=== PATIENT | male | born 1950 | race Caucasian/White ===

== ENCOUNTER 2021-05-03 14:45 | Emergency (ER) | payer OTHER, SELFPAY ==
[2021-05-03] VITALS (13 sets, daily range): BP systolic 92–137; BP diastolic 51–91; PULSE 64–87; RESP 16–20; TEMP 36.2; O2SAT 97–99
--- NOTE | ~2021-05-03 | XR_ITS ---
EXAMINATION: XR chest 2V DATE: 05/03/2021 15:20 INDICATION: Dizziness and weakness TECHNIQUE: AP and lateral views of the chest are obtained. COMPARISON: None available FINDINGS: The lungs are free of acute opacities. There is no pleural effusion or pneumothorax. The ca rdiomediastinal silhouette is normal. There are bridging osteophytes at multiple levels in the spine, consistent with diffuse idiopathic skeletal hyperostosis (DISH). IMPRESSION: 1. No acute cardiopulmonary abnormality. Reviewed, dictated and finalized at location B.
--- NOTE | ~2021-05-03 | CT_ITS ---
EXAMINATION: CT brain wo con DATE: 05/03/2021 18:23 INDICATION: Dizziness and falls TECHNIQUE: Computed tomography (CT) of the head was performed without intravenous contrast. Sagittal and coronal reconstructions were performed. The mA was adjusted according to patient size. Iterative reconstruction technique was employed. The dose-length product was 605.33 mGy-cm. COMPARISON: None FINDINGS: No fracture. No acute intracranial hemorrhage, acute infarction or abnormal extra axial fluid collect ion. There is mild scattered white matter hypoattenuation consistent with chronic small vessel ischem ic disease. Symmetric prominence of the sulci and ventricles consistent with mild age-appropriate dif fuse cerebral volume loss. There is a 1.4 x 1.2 x 1.0 cm extra-axial mass in the left posterior fossa which appears flattened along the side abutting the left petrous bone and with greater density than the brain parenchyma suggesting a dural based meningioma. The underlying petrous bone appears normal with no cortical erosion. No other masses identified. The orbits and right mastoid air cells are norm al. Small left mastoid effusion. Minimal scattered mucoperiosteal thickening in the paranasal sinuses . IMPRESSION: 1. No fracture or acute intracranial process. 2. 1.4 cm extra-axial mass in the left posterior fossa with appearance suggesting a meningioma. Less likely etiologies would include dural metastatic disease, lymphoma, neurosarcoidosis or other less li yury primary malignancies. Recommend correlation with any prior outside imaging to document chronicit y. Otherwise would consider further evaluation with pre and postcontrast MRI to confirm a dural based etiology and for more sensitive assessment for any additional lesions. 3. Age-related changes including mild diffuse volume loss and mild scattered white matter hypoattenua tion consistent with chronic small vessel ischemic disease. Reviewed, dictated and finalized at location A. IMPRESSION: 1. No fracture or acute intracranial process. 2. 1.4 cm extra-axial mass in the left posterior fossa with appearance suggesti ng a meningioma. Less likely etiologies would include dural metastatic disease, lymphoma, neurosarcoidosis or other less likely primary malignancies. Recommen d correlation with any prior outside imaging to document chronicity. Otherwise would consider further evaluation with pre and postcontrast MRI to confirm a du ral based etiology and for more sensitive assessment for any additional lesions . 3. Age-related changes including mild diffuse volume loss and mild scattered wh ite matter hypoattenuation consistent with chronic small vessel ischemic diseas e.
--- NOTE | 2021-05-03 14:51 | ECG_ITS ---
Measurements Intervals [place] Rate: 73 P: 46 VT: 179 QRS: -84 QRSD: 110 T: 79 QT: 377 QTc: 418 Interpretive Statements SINUS RHYTHM LEFT AXIS DEVIATION INTRAVENTRICULAR CONDUCTION DELAY POOR R WAVE PROGRESSION, ANTERIOR LEADS INFERIOR INFARCT, AGE INDETERMINATE BORDERLINE ST-T WAVE ABNORMALITY- HIGH LATERAL LEADS BASELINE WANDER- V1-V3 ABNORMAL ECG Electronically Signed On 05-03-2021 15:24:18 CDT by Nikko Serra D.O.
[2021-05-03 15:20] LABS: Basophils Absolute Auto 0.1 K/mm3 (0.0-0.1); Basophils Percent Auto 0.6 % (0.2-1.2); Eosinophils Absolute Auto 0.3 K/mm3 (0-0.3); Hematocrit 47.8 % (42.0-52.0); Hemoglobin 16.6 g/dL (14.0-18.0); Immature Granulocyte Absolute 0.12 K/mm3 (0.00-0.031); Immature Granulocyte Percent A 0.8 % (0-0.5); Lymphocytes Absolute Auto 3.45 K/mm3 (0.9-3.2); Lymphocytes Percent Auto 22.1 % (18.3-44.2); Mean Corpuscular HGB Conc 34.7 g/dl (32-36); Mean Corpuscular Volume 83.4 fl (80-100); Mean Platelet Volume 11.6 fl (7.4-10.4); Monocytes Absolute Auto 1.1 K/mm3 (0.1-0.6); Monocytes Percent Auto 6.8 % (2.6-8.5); Neutrophils Absolute Auto 10.6 K/mm3 (1.3-6.7); Neutrophils Percent Auto 67.7 % (45.5-73.1); Platelet Count Result 317 k/mm3 (150-375); Red Blood Count 5.73 M/mm3 (4.6-6.20); Red Cell Distribution Width 12.9 % (11.5-14.5); White Blood Count 15.6 K/mm3 (4.5-10.0)
[2021-05-03 15:32] LABS: Alanine Aminotransferase 22 U/L (4-50); Albumin Level 4.5 g/dL (3.5-5.1); Alkaline Phosphatase 117 U/L (38-126); Anion Gap 13 mmol/L (8-16); Aspartate Amino Transferase 29 U/L (17-59); Bilirubin,Total 0.7 mg/dL (0.2-1.3); Blood Urea Nitrogen 42 mg/dL (9-20); Calcium 10.7 mg/dL (8.4-10.2); Carbon Dioxide 23 mmol/L (22-30); Chloride 93 mmol/L (98-107); Estimated CRCL calculation 18 ml/min; Estimated Glomerular Filt Rate 16; Glucose 133 mg/dL (65-110); Potassium 3.5 mmol/L (3.4-5.0); Sodium 129 mmol/L (137-145)
[2021-05-03 17:26] LABS: Magnesium 2.2 mg/dL (1.6-2.3)
[2021-05-03 17:39] LABS: NT Pro B Type Natriuretic Pept 191 pg/mL (5-100); Troponin I < 0.012 ng/mL (0.000-0.034)
[2021-05-03 19:12] LABS: Glucose Point of Care 124 mg/dl (65-105)
--- NOTE | 2021-05-03 19:40 | ED.DIZZY ---
HPI - Dizziness General Chief Complaint: Dizziness Stated Complaint: dizzy spells, falls Time Seen by Provider: 05/03/21 16:50 Source: patient and family Mode of arrival: ambulatory Limitations: no limitations History of Present Illness HPI Narrative: 71-year-old male Patient lives over in [place] and his doctors are all there but is visiting family here They are worried because he has had several falls over the last couple of weeks Patient states that he has intermittent dizziness primarily when he is upright but very occasionally something similar but milder when he rolls over in bed This causes him to veer around and have what he describes as not hard falls or anything He has not injured himself He does not have headaches he does not have any visual symptoms he denies hearing loss or tinnitus and he does not have any focal weakness Nor does he have any other symptoms of acute illness, denying shortness of breath chest pain vomiting or diarrhea dysuria or difficulty urinating, etc. He does not have an accurate list of his medications, says he takes about 13 mostly for diabetes and hypertension He knows he has some kidney problems but does not know how bad they are He does not have access to any of his records via a [facility] or [facility] portal Related Data Allergies Allergy/AdvReac Type Severity Reaction Status Date / Time codeine AdvReac Nausea and Verified 05/03/21 17:09 Vomiting Review of Systems Review of Systems: All systems reviewed & are unremarkable except as noted in HPI and below Constitutional: Constitutional: Reports no additional constitutional complaints, Denies chills, Denies fever(s), Denies headache(s) and Reports weakness Eyes: Eyes: Reports no additional eye complaints and Denies change in vision ENT: Denies headache(s) and Denies sore throat Cardiovascular: Cardiovascular: Denies chest pain and Denies dyspnea Respiratory: Respiratory: Denies cough and Denies dyspnea Gastrointestinal: Gastrointestinal: Denies abdominal pain, Denies diarrhea and Denies vomiting Genitourinary: Genitourinary: Denies oliguria, Denies dysuria and Denies urinary frequency Musculoskeletal: Musculoskeletal: Denies deformity, Denies arthralgias, Denies joint swelling and Denies numbness Integumentary/Breasts: Skin/Breast: Denies rash and Denies wounds Neurologic: Reports dizziness, Denies headache(s), Denies focal weakness, Denies numbness and Reports weakness Psychiatric: Psychiatric: Reports no additional psychiatric complaints Endocrine: Endocrine: Reports no additional endocrine complaints Hematologic/Lymphatic: Hematologic/Lymphatic: Reports no additional hematologic/lymphatic complaints Allergic/Immunologic: Allergic/Immunologic: Reports no additional allergic/immunologic complaints [facility] Social History Social History Gender identity (if verbalized by the patient): Male Exam Const: General: cooperative, healthy appearing, no acute distress and alert Orientation/consciousness: patient oriented x3 (alert) HENMT: Head: normal to inspection, normocephalic, atraumatic, no contusions and no hematomas Ears: external ears normal General nose exam: no epistaxis Other: Hearing okay Eyes: Conjunctivae: conjunctivae normal Pupils: Equal, round and reactive pupils present EOM: EOMs intact bilaterally Other: No nystagmus, no skew Neck: Neck: normal visual inspection, supple and no JVD Other: Supple Resp: Effort & Inspection: normal respiratory effort and not labored Auscultation: clear to auscultation bilaterally, no rales, no rhonchi, no wheezes and other (BS =) Cardio: Rate: regular rate Rhythm: regular rhythm Heart sounds: no murmurs GI: GI Palp: Yes Soft to palpation and No Tenderness to palpation present (GI) Skin: General skin exam: normal color and no rashes or lesions noted Neuro: General: patient oriented x3 (alert), moves all extremities, no meningeal signs, n
[2021-05-03] MEDS: LACTATED RINGERS 1,000 ML 999 ML IV CONT (20:49)
[2021-05-03 21:22] LABS: Add Urine Microscopic? YES; Appearance Urine Clear (Clear); Bacteria Urine Trace /hpf; Bilirubin Urine Negative (Negative); Blood Urine Negative (Negative); Color Urine Yellow (Yellow); Glucose Urine UA 3+ mg/dL (Negative); Ketones Urine Negative (Negative); Leukocyte Esterase Ur Negative LEU/UL (Negative); Mucus Urine Rare /lpf; Nitrate Urine Negative (Negative); Protein Urine 3+ mg/dL (Negative); RBC Urine 0-2 /hpf (0-2); Specific Grav Ur 1.022 (1.001-1.035); Squamous Epithelial Cell Urine Rare /hpf (Few); Urobilinogen Urine Negative mg/dL (<2.0); WBC Urine 0-3 /hpf
--- NOTE | 2021-05-03 22:15 | PC.NURSE ---
Dr Iniguez at bedside, aware of orthostatics. Pt instructed to stop nifedipine until he can follow-up with primary care.
[2021-05-03 22:59] LABS: Glucose Point of Care 116 mg/dl (65-105)
== END 2021-05-03 23:10 | disposition home or self-care (01) ==
PROVIDERS: Emergency Provider Emergency Medicine
DX: I95.1 Orthostatic hypotension (principal); E11.22 Type 2 diabetes mellitus with diabetic chronic kidney disease; N18.9 Chronic kidney disease, unspecified; I12.9 Hypertensive chronic kidney disease with stage 1 through stage 4 chronic kidney disease, or unspecified chronic kidney disease; D32.9 Benign neoplasm of meninges, unspecified; Z88.5 Allergy status to narcotic agent
CPT/HCPCS: 36415; 70450; 71046; 80053; 81001; 82948; 83735; 83880; 84484; 85025; 93005; 96360; 99284; J7120